=== PATIENT | female | born 1995 | race Caucasian/White ===

== ENCOUNTER 2024-02-15 23:03 | Emergency (ER) | payer OTHER ==
[2024-02-15 23:10] VITALS: BP 145/79; PULSE 82; RESP 16; TEMP 98.4; BMI 32.1
[2024-02-15] MEDS: LIDOCAINE PATCH REMOVAL MC SCH (23:55)
[2024-02-15] MEDS ORDERED: LIDOCAINE 4% PATCH TP ONE (23:58)
[2024-02-16] MEDS: ONDANSETRON 4 MG/2 ML VIAL IVPUSH ONE (00:20)
[2024-02-16] MEDS: LIDOCAINE 4% PATCH TP ONE (00:20)
[2024-02-16 00:27] LABS: BASO % 0.6 % (0-2.0); EOS % 2.2 % (0-4.5); HEMATOCRIT 39.4 % (32.4-45.2); HEMOGLOBIN 13.3 GM/dL (10.7-15.3); LYMPH % 24.2 % (8-40); MCHC 33.8 g/dl (32.0-36.0); MEAN CELL VOLUME 91.6 fl (80-96); MEAN PLT VOLUME 9.5 fl (7.5-11.1); MONO % 8.2 % (3.8-10.2); NEUT % 64.8 % (42.8-82.8); PLATELET COUNT 206 10^3/uL (134-434); RDW 13.5 % (11.6-15.6); WHITE BLOOD COUNT 11.4 K/mm3 (4.0-10.0)
[2024-02-16] MEDS: ONDANSETRON *ODT* 4 MG TABLET SL ONE (00:30)
[2024-02-16 00:32] LABS: EPI CELLS 19 /uL (0-25.1); HYALINE CASTS 0 /uL (0-3.1); PH,URINE 6.5 (5.0-8.0); URINE APPEARANCE CLEAR; URINE BACTERIA 253 /uL (0-1359); URINE BILIRUBIN NEGATIVE (NEGATIVE); URINE COLOR YELLOW; URINE GLUCOSE (UA) NEGATIVE (NEGATIVE); URINE KETONE NEGATIVE (NEGATIVE); URINE LEUK ESTERASE TRACE (NEGATIVE); URINE NITRITE NEGATIVE (NEGATIVE); URINE PROTEIN NEGATIVE (NEGATIVE); URINE RBC 13 /uL (0-23.9); URINE UROBILINOGEN 0.2 mg/dL (0.2-1.0); URINE WBC 21 /uL (0-25.8)
[2024-02-16 01:08] LABS: POTASSIUM 4.4 mmol/L (3.5-5.1)
[2024-02-16 01:10] LABS: CALCIUM 8.8 mg/dL (8.5-10.1)
[2024-02-16 01:11] LABS: ALBUMIN 3.8 g/dl (3.4-5.0); BLOOD UREA NITROGEN 7.4 mg/dL (7-18)
[2024-02-16 01:14] LABS: CREATININE 0.6 mg/dL (0.55-1.3)
[2024-02-16 01:15] LABS: BILIRUBIN,TOTAL 0.3 mg/dL (0.2-1); TOT PROT 7.2 g/dl (6.4-8.2)
[2024-02-16] MEDS ORDERED: ACETAMINOPHEN 325 MG TABLET (FP) ONE (01:39)
[2024-02-16] MEDS ORDERED: CEPHALEXIN MONOHYDRATE 500 MG CAPSULE (UD) ONE (01:39)
[2024-02-16] MEDS: CEPHALEXIN MONOHYDRATE 500 MG CAPSULE (UD) PO ONE (01:40)
[2024-02-16] MEDS: ACETAMINOPHEN 325 MG TABLET (FP) PO ONE (01:44)
[2024-02-16] MEDS ORDERED: LIDOCAINE PATCH REMOVAL MC ONE (12:00)
== END 2024-02-16 01:40 | disposition home or self-care (01) ==
LOC: JER 23:03
DX: O23.41 Unspecified infection of urinary tract in pregnancy, first trimester (principal); O26.891 Other specified pregnancy related conditions, first trimester; R10.2 Pelvic and perineal pain; R10.30 Lower abdominal pain, unspecified; O99.891 Other specified diseases and conditions complicating pregnancy; R30.0 Dysuria; R35.0 Frequency of micturition; Z3A.10 10 weeks gestation of pregnancy
CPT/HCPCS: 36415; 76801-TC; 80053; 81003; 84702; 84703; 85025; 86850; 86900; 86901; 87077; 87086; 99284-25; Q0162

== ENCOUNTER 2024-09-12 02:08 | Inpatient (IN) | payer OTHER ==
[2024-09-12] MEDS ORDERED: BUTORPHANOL TARTRATE 1 MG/ML VIAL IVPB PRN (02:31)
[2024-09-12] MEDS ORDERED: PROMETHAZINE HCL 25 MG/1 ML VIAL IVPB PRN (02:31)
[2024-09-12] MEDS: LACTATED RINGERS SOLUTION 1,000 ML/1,000 ML INFUS.BAG IV SCH (02:45)
[2024-09-12] MEDS ORDERED: MAGNESIUM 4GM/H20 - 4 GM/100 ML IVPB IVPB ONE (02:46)
[2024-09-12] MEDS ORDERED: MAGNESIUM SULFATE 20GM/500ML - 20 GM/500 ML INFUS.BAG ONE ×3 (02:46→22:01)
[2024-09-12] MEDS: MAGNESIUM 4GM/H20 - 4 GM/100 ML IVPB IVPB ONE (02:51)
[2024-09-12] MEDS: MAGNESIUM SULFATE 20GM/500ML - 20 GM/500 ML INFUS.BAG IVPB SCH (03:26)
[2024-09-12 03:30] LABS: BASO % 0.5 % (0-2.0); EOS % 2.1 % (0-4.5); HEMATOCRIT 40.5 % (32.4-45.2); HEMOGLOBIN 13.8 GM/dL (10.7-15.3); LYMPH % 22.8 % (8-40); MCH 30.6 pg (25.7-33.7); MCHC 34.1 g/dl (32.0-36.0); MEAN CELL VOLUME 89.6 fl (80-96); MONO % 8.4 % (3.8-10.2); NEUT % 66.2 % (42.8-82.8); PLATELET COUNT 127 10^3/uL (134-434); RBC 4.52 M/mm3 (3.60-5.2); RDW 14.6 % (11.6-15.6); WHITE BLOOD COUNT 9.6 K/mm3 (4.0-10.0)
[2024-09-12 03:38] LABS: POTASSIUM 4.1 mmol/L (3.5-5.1)
[2024-09-12] MEDS ORDERED: PENICILLIN G POTASSIUM 5,000,000 (5Mm) UNIT VIAL IVPB ONE (03:39)
[2024-09-12 03:40] LABS: CALCIUM 8.9 mg/dL (8.5-10.1)
[2024-09-12 03:41] LABS: BLOOD UREA NITROGEN 10.2 mg/dL (7-18)
[2024-09-12 03:44] LABS: CREATININE 0.5 mg/dL (0.55-1.3)
[2024-09-12] MEDS ORDERED: PENICILLIN G POTASSIUM 5,000,000 (5Mm) UNIT VIAL IVPB SCH (03:45)
[2024-09-12 03:48] LABS: URIC ACID 5.1 mg/dL (2.6-7.2)
[2024-09-12 04:03] LABS: EPI CELLS 9 /uL (0-25.1); HYALINE CASTS 2 /uL (0-3.1); URINE APPEARANCE Error; URINE BACTERIA 58 /uL (0-1359); URINE BILIRUBIN NEGATIVE (NEGATIVE); URINE COLOR YELLOW; URINE GLUCOSE (UA) NEGATIVE (NEGATIVE); URINE KETONE NEGATIVE (NEGATIVE); URINE LEUK ESTERASE NEGATIVE (NEGATIVE); URINE NITRITE NEGATIVE (NEGATIVE); URINE PROTEIN 3+ (NEGATIVE); URINE RBC 358 /uL (0-23.9); URINE UROBILINOGEN 0.2 mg/dL (0.2-1.0); URINE WBC 29 /uL (0-25.8)
[2024-09-12 04:09] LABS: URINE AMPHETAMINES NEGATIVE (NEGATIVE); URINE BARBITURATES NEGATIVE (NEGATIVE); URINE BENZODIAZEPINES NEGATIVE (NEGATIVE)
[2024-09-12 04:10] LABS: METHADONE, UR NEGATIVE (NEGATIVE); PHENCYCLIDINE,URINE NEGATIVE (NEGATIVE)
[2024-09-12 04:17] LABS: ACTIVATED PTT 28.3 SECONDS (25.2-36.5)
[2024-09-12 04:22] LABS: COCAINE, UR NEGATIVE (NEGATIVE); OPIATES, URI NEGATIVE (NEGATIVE)
[2024-09-12] MEDS: DINOPROSTONE 10 MG VAGINAL SUPPOSITORY VG ONE ×2 (04:50→20:37)
[2024-09-12 04:57] VITALS: BMI 36.1
[2024-09-12] MEDS ORDERED: PENICILLIN G POTASSIUM 5,000,000 UNIT/250 ML BAG IVPB ONE (05:02)
[2024-09-12] MEDS: PENICILLIN G POTASSIUM 5,000,000 UNIT/250 ML BAG IVPB ONE (05:10)
[2024-09-12] MEDS ORDERED: ACETAMINOPHEN 325 MG TABLET (FP) ONE ×3 (08:13→18:05)
[2024-09-12] MEDS: ACETAMINOPHEN 325 MG TABLET (FP) PO ONE (08:15)
[2024-09-12] MEDS: PENICILLIN G POTASSIUM 2,500,000 UNIT in SODIUM CHLORIDE 250 ML IVPB SCH (09:17)
[2024-09-12 10:29] LABS: SGOT/AST 21 U/L (15-37); SGPT/ALT 25 U/L (13-61)
[2024-09-12 10:33] LABS: MAGNESIUM 5.1 mg/dL (1.8-2.4)
[2024-09-12 11:32] LABS: GAMMA GLUTAMYL TRANSPEPTIDASE 91 U/L (5-85)
[2024-09-12 17:36] LABS: MAGNESIUM 5.7 mg/dL (1.8-2.4)
[2024-09-12] MEDS: ACETAMINOPHEN 325 MG TABLET (FP) PO PRN (18:31)
[2024-09-12] MEDS: ZOLPIDEM TARTRATE 5 MG TABLET PO ONE (20:44)
[2024-09-12 22:56] LABS: MAGNESIUM 5.8 mg/dL (1.8-2.4)
[2024-09-13] MEDS ORDERED: ACETAMINOPHEN INJECTION 100 ML ONE ×2 (01:08→20:34)
[2024-09-13] MEDS: ACETAMINOPHEN 1000 MG/100 ML BAG IVPB ONE ×2 (01:12→20:40)
[2024-09-13 04:41] LABS: GAMMA GLUTAMYL TRANSPEPTIDASE 90 U/L (5-85)
[2024-09-13 04:43] LABS: URIC ACID 5.6 mg/dL (2.6-7.2)
[2024-09-13 04:44] LABS: SGOT/AST 23 U/L (15-37); SGPT/ALT 24 U/L (13-61)
[2024-09-13 06:30] LABS: EPI CELLS 7 /uL (0-25.1); HYALINE CASTS 1 /uL (0-3.1); PH,URINE 6.5 (5.0-8.0); URINE APPEARANCE CLEAR; URINE BACTERIA 10 /uL (0-1359); URINE BILIRUBIN NEGATIVE (NEGATIVE); URINE COLOR YELLOW; URINE GLUCOSE (UA) NEGATIVE (NEGATIVE); URINE KETONE NEGATIVE (NEGATIVE); URINE LEUK ESTERASE NEGATIVE (NEGATIVE); URINE NITRITE NEGATIVE (NEGATIVE); URINE PROTEIN 1+ (NEGATIVE); URINE RBC 230 /uL (0-23.9); URINE UROBILINOGEN 0.2 mg/dL (0.2-1.0); URINE WBC 19 /uL (0-25.8)
[2024-09-13 07:52] LABS: RETICULOCYTES 1.31 % (0.5-1.5)
[2024-09-13] MEDS ORDERED: ACETAMINOPHEN 325 MG TABLET (FP) ONE (08:11)
[2024-09-13] MEDS ORDERED: PENICILLIN G POTASSIUM 5,000,000 UNIT/250 ML BAG IVPB ONE ×2 (08:11→11:43)
[2024-09-13] MEDS: OXYTOCIN 30 UNITS in 0.9% NS 30 UNIT/500 ML INFUS.BAG IVPB SCH (09:31)
[2024-09-13] MEDS ORDERED: MAGNESIUM SULFATE 20GM/500ML - 20 GM/500 ML INFUS.BAG ONE ×2 (10:35→18:54)
[2024-09-13 10:49] LABS: POC NITRAZINE POS
[2024-09-13 10:51] LABS: MAGNESIUM 5.2 mg/dL (1.8-2.4)
[2024-09-13] MEDS ORDERED: FENTANYL CITRATE/PF 50 MCG/ML VIAL ONE (16:46)
[2024-09-13] MEDS ORDERED: ACETAMINOPHEN 325 MG TABLET (FP) PO PRN (16:46)
[2024-09-13] MEDS ORDERED: morphine SULFATE/PF 1 MG/2 ML (2cc Syringe - QUVA) ONE (16:46)
[2024-09-13] MEDS ORDERED: ONDANSETRON 4 MG/2 ML VIAL ONE (16:52)
[2024-09-13] MEDS ORDERED: DEXAMETHASONE SOD PHOSPHATE 4 MG/1 ML VIAL ONE (16:52)
[2024-09-13] MEDS ORDERED: ceFAZolin SODIUM 1 GM VIAL ONE (16:52)
[2024-09-13] MEDS ORDERED: OXYTOCIN 10 UNITS/ML VIAL ONE (17:21)
[2024-09-13 18:14] LABS: MAGNESIUM 4.9 mg/dL (1.8-2.4)
[2024-09-13] MEDS ORDERED: ONDANSETRON 4 MG/2 ML VIAL IVPUSH PRN (18:26)
[2024-09-13] MEDS ORDERED: OXYTOCIN 20 UNITS in 0.9% NS 20 UNIT/1,000 ML INFUS.BAG IV ONE ×2 (18:33→23:49)
[2024-09-13] MEDS ORDERED: AZITHROMYCIN IVPB 500 MG/250 ML BAG IVPB ONE (18:40)
[2024-09-13] MEDS: AZITHROMYCIN IVPB 500 MG/250 ML BAG IVPB STA (18:41)
[2024-09-13] MEDS: OXYTOCIN 20 UNITS in 0.9% NS 20 UNIT/1,000 ML INFUS.BAG IV SCH (18:42)
[2024-09-13] MEDS ORDERED: MISOPROSTOL 200 MCG TABLET ONE (21:29)
[2024-09-13] MEDS ORDERED: TRANEXAMIC ACID 1000 MG/10 ML VIAL ONE (21:31)
[2024-09-13 21:48] LABS: BASO % 0.3 % (0-2.0); EOS % 0.2 % (0-4.5); HEMATOCRIT 31.2 % (32.4-45.2); HEMOGLOBIN 10.3 GM/dL (10.7-15.3); LYMPH % 11.3 % (8-40); MCH 29.8 pg (25.7-33.7); MCHC 33.1 g/dl (32.0-36.0); MEAN CELL VOLUME 90.1 fl (80-96); MEAN PLT VOLUME 10.6 fl (7.5-11.1); MONO % 3.5 % (3.8-10.2); NEUT % 84.7 % (42.8-82.8); PLATELET COUNT 130 10^3/uL (134-434); RBC 3.46 M/mm3 (3.60-5.2); RDW 14.7 % (11.6-15.6); WHITE BLOOD COUNT 14.4 K/mm3 (4.0-10.0)
[2024-09-13] MEDS ORDERED: METHYLERGONOVINE MALEATE 0.2 MG/1 ML AMP IM SCH (22:00)
[2024-09-13] MEDS: METHYLERGONOVINE MALEATE 0.2 MG/1 ML AMP IM STA (22:13)
[2024-09-13] MEDS: morphine SULFATE 4 MG/ML VIAL IVPUSH ONE (23:49)
[2024-09-14] MEDS ORDERED: morphine SULFATE 4 MG/ML VIAL ONE (00:18)
[2024-09-14] MEDS: morphine SULFATE/PF 1 MG/2 ML (2cc Syringe - QUVA) IT ONE (00:42)
[2024-09-14] MEDS ORDERED: METHYLERGONOVINE MALEATE 0.2 MG TABLET (FP) ONE (02:10)
[2024-09-14] MEDS ORDERED: ceFAZolin SODIUM 1 GM VIAL ONE (02:10)
[2024-09-14] MEDS ORDERED: SODIUM CHLORIDE 100 ML IVPB ONE (02:11)
[2024-09-14] MEDS: CEFAZOLIN 1 GM/D5W 1 GM/50 ML BAG IVPB ONE (02:18)
[2024-09-14] MEDS: METHYLERGONOVINE MALEATE 0.2 MG TABLET (FP) PO ONE (02:20)
[2024-09-14 07:32] LABS: BASO % 0.3 % (0-2.0); EOS % 0.2 % (0-4.5); HEMATOCRIT 35.1 % (32.4-45.2); HEMOGLOBIN 11.3 GM/dL (10.7-15.3); LYMPH % 18.3 % (8-40); MCH 29.1 pg (25.7-33.7); MCHC 32.3 g/dl (32.0-36.0); MEAN CELL VOLUME 90.3 fl (80-96); MONO % 7.3 % (3.8-10.2); NEUT % 73.9 % (42.8-82.8); PLATELET COUNT 103 10^3/uL (134-434); RBC 3.88 M/mm3 (3.60-5.2); WHITE BLOOD COUNT 14.5 K/mm3 (4.0-10.0)
[2024-09-14] MEDS ORDERED: oxyCODONE HCL 5 MG TABLET ONE (07:47)
[2024-09-14] MEDS: oxyCODONE HCL 5 MG TABLET PO PRN (07:50)
[2024-09-14 08:00] LABS: POTASSIUM 4.2 mmol/L (3.5-5.1)
[2024-09-14 08:03] LABS: ALBUMIN 1.7 g/dl (3.4-5.0); BLOOD UREA NITROGEN 13.2 mg/dL (7-18)
[2024-09-14 08:04] LABS: CALCIUM 7.3 mg/dL (8.5-10.1)
[2024-09-14 08:06] LABS: CREATININE 0.7 mg/dL (0.55-1.3)
[2024-09-14 08:08] LABS: BILIRUBIN,TOTAL 0.4 mg/dL (0.2-1); TOT PROT 4.2 g/dl (6.4-8.2)
[2024-09-14 08:42] LABS: INR 0.96 (0.83-1.09); PROTHROMBIN TIME (PATIENT) 10.6 SEC (9.7-13.0)
[2024-09-14] MEDS ORDERED: ACETAMINOPHEN 325 MG TABLET (FP) ONE (09:08)
[2024-09-14] MEDS: ACETAMINOPHEN 325 MG TABLET (FP) PO PRN (09:10)
[2024-09-14] MEDS: TRANEXAMIC ACID 1000 MG/10 ML VIAL IVPUSH ONE (10:16)
[2024-09-14] MEDS: IBUPROFEN 800 MG/8 ML IJ IVPB PRN (10:36)
[2024-09-14] MEDS: MISOPROSTOL 25 MCG TABLET (COMPOUNDED BY PHARMACY) PR ONE (10:38)
[2024-09-14] MEDS: SIMETHICONE 80 MG TAB.CHEW (FP) PO PRN (16:35)
[2024-09-14] MEDS ORDERED: BISACODYL 10 MG SUPP.RECT RC PRN (16:46)
[2024-09-14] MEDS: IBUPROFEN 600 MG TABLET (FP) PO PRN (19:55)
[2024-09-15] MEDS: LABETALOL HCL 200 MG TABLET (FP) PO ONE (07:01)
[2024-09-15 07:50] LABS: BASO % 0.3 % (0-2.0); EOS % 1.3 % (0-4.5); HEMATOCRIT 28.8 % (32.4-45.2); HEMOGLOBIN 9.4 GM/dL (10.7-15.3); LYMPH % 18.6 % (8-40); MCH 29.5 pg (25.7-33.7); MCHC 32.6 g/dl (32.0-36.0); MEAN CELL VOLUME 90.4 fl (80-96); MEAN PLT VOLUME 10.1 fl (7.5-11.1); MONO % 8.2 % (3.8-10.2); NEUT % 71.6 % (42.8-82.8); PLATELET COUNT 101 10^3/uL (134-434); RBC 3.19 M/mm3 (3.60-5.2); RDW 15.6 % (11.6-15.6); WHITE BLOOD COUNT 10.8 K/mm3 (4.0-10.0)
[2024-09-15] MEDS: LABETALOL HCL 200 MG TABLET (FP) PO SCH (22:29)
[2024-09-15] MEDS: FUROSEMIDE 40 MG/4 ML INJECTABLE VIAL IVPB ONE (22:40)
[2024-09-16 07:20] LABS: BASO % 0.5 % (0-2.0); HEMATOCRIT 27.3 % (32.4-45.2); HEMOGLOBIN 9.2 GM/dL (10.7-15.3); MCHC 33.5 g/dl (32.0-36.0); MEAN CELL VOLUME 89.5 fl (80-96); MEAN PLT VOLUME 9.3 fl (7.5-11.1); NEUT % 70.5 % (42.8-82.8); PLATELET COUNT 120 10^3/uL (134-434); RBC 3.05 M/mm3 (3.60-5.2); RDW 15.4 % (11.6-15.6); WHITE BLOOD COUNT 9.4 K/mm3 (4.0-10.0)
[2024-09-16] MEDS: FLU VACCINE (FLULAVAL) PF 45 MCG/0.5 ML SYRINGE 2024-2025 IM ONE (10:31)
[2024-09-16] MEDS: FUROSEMIDE 40 MG/4 ML INJECTABLE VIAL IVPB SCH (10:40)
[2024-09-16 23:05] VITALS: RESP 18
[2024-09-18 09:16] VITALS: BP 137/91; PULSE 90; TEMP 98.2
== END 2024-09-18 15:45 | disposition home or self-care (01) | DRG 540 ==
LOC: JDEL 02:08 → JLDR 02:15 → UNDOADMIN 02:15 → JLDR 09-13 02:15 → J3W 09-14 09:10
PROVIDERS: ADMIT Obstetrics & Gynecology; ATTEND Obstetrics & Gynecology
PROC: 3E0P7VZ Introduction of Hormone into Female Reproductive, Via Natural or Artificial Opening (ICD-10-PCS; 2024-09-12)
PROC: 10D00Z1 Extraction of Products of Conception, Low, Open Approach (ICD-10-PCS; principal; 2024-09-13)
PROC: 30233N1 Transfusion of Nonautologous Red Blood Cells into Peripheral Vein, Percutaneous Approach (ICD-10-PCS; 2024-09-13)
DX: O14.13 Severe pre-eclampsia, third trimester (principal); O72.1 Other immediate postpartum hemorrhage; O99.213 Obesity complicating pregnancy, third trimester; O99.02 Anemia complicating childbirth; O61.0 Failed medical induction of labor; O99.820 Streptococcus B carrier state complicating pregnancy; O62.1 Secondary uterine inertia; Z3A.40 40 weeks gestation of pregnancy; Z37.0 Single live birth
CPT/HCPCS: 36415; 36430; 80048; 80053; 80307; 81003; 82570; 82977; 83010; 83735; 83986-QW; 84156; 84450; 84460; 84550; 85025; 85032; 85045; 85384; 85610; 85730; 86780; 86850; 86900; 86901; 86922; 88307-TC; 90656; G0008; J0131; P9038; P9058